=== PATIENT | female | born 1970 ===

== ENCOUNTER → 2017-03-30 | Outpatient (CLI) | payer SELFPAY ==
--- NOTE | 2017-03-30 18:14 | Diagnostic Imaging Report ---
PROCEDURE: CT chest with contrast only. TECHNIQUE: Multiple contiguous axial images were obtained through the chest after administration of intravenous contrast. INDICATION: Shortness of breath. Bloody nose and headache. FINDINGS: The lungs appear clear without evidence of focal infiltrate. There is no effusion or pneumothorax. No pulmonary nodule or mass evident. The thoracic aorta is normal. The pulmonary arteries are normal in size. There is suboptimal opacification of the pulmonary arteries for evaluation of embolism, but there is no central pulmonary embolus demonstrated. There is limited evaluation of the interlobar and the segmental branches. There is no evidence of pathologic enlargement of mediastinal lymph nodes. The axillae are unremarkable. The visualized portion of the upper abdomen demonstrates a right hepatic cyst. No acute process demonstrated. IMPRESSION: 1. Lungs appear clear. 2. Thoracic aorta is normal. 3. Limited assessment for pulmonary embolism. There is, however, no evidence to suggest central pulmonary embolism on this exam. The degree of contrast opacification is suboptimal for more distal assessment. Dictated by: Dictated on workstation # [id number]
[2017-03-30] MEDS: NS 100 ML (IVPB) BAG IV ONE (18:34)
[2017-03-30] MEDS: IOHEXOL 350 MG/ML 100 ML (OMNIPAQUE 350) VIAL IV ONE (18:34)
[2017-03-30] MEDS: CATHETER FLUSH 10 ML SYR IV PRN (18:35)
== END ==
LOC: RAD 16:22
PROVIDERS: ATTEND Nurse Practitioner Family
DX: R06.02 Shortness of breath (principal); R04.0 Epistaxis
CPT/HCPCS: 71260